=== PATIENT | male | born 1995 | race Caucasian/White ===

== ENCOUNTER 2019-05-22 13:00 | Inpatient (IN) | payer OTHER ==
[2019-05-22] MEDS ORDERED: PROPOFOL 0 MG/0 ML INFUS..BTL IV ONE (13:07)
[2019-05-22] MEDS ORDERED: LORAZEPAM INJ 2 MG/1 ML VIAL ONE (13:09)
[2019-05-22] MEDS ORDERED: MIDAZOLAM HCL 50 MG/100 ML RTUINJ ONE (13:14)
[2019-05-22] MEDS ORDERED: ETOMIDATE INJ/PF 20 MG/10 ML SDV IV ONE (13:18)
[2019-05-22] MEDS ORDERED: SUCCINYLCHOLINE CHLORIDE INJ 200 MG/10 ML VIAL IV ONE (13:18)
[2019-05-22] MEDS ORDERED: LORAZEPAM INJ 2 MG/1 ML VIAL IV ONE (13:18)
[2019-05-22] MEDS ORDERED: MIDAZOLAM HCL 50 MG/100 ML RTUINJ IV PRN (13:19)
[2019-05-22] MEDS ORDERED: VECURONIUM BROMIDE INJ 10 MG VIAL IV ONE (13:19)
[2019-05-22] MEDS ORDERED: NORMAL SALINE 1000 ML 1,000 ML IV ONE ×2 (13:20)
[2019-05-22] MEDS ORDERED: NORMAL SALINE 1000 ML 2,000 ML IV ONE (13:28)
[2019-05-22] MEDS ORDERED: NOREPINEPHRINE BITARTRATE INJ/PF 4 MG/4 ML SDV IV ONE (13:33)
--- NOTE | 2019-05-22 13:34 | ER Document Report ---
Entered by MARILU WISDOM SCRIBE 05/22/19 1394 Acting as scribe for:FORTUNATO NICHOLE IV, MD ED Resuscitation - General Chief Complaint: Unresponsive Stated Complaint: UNRESPONSIVE Mode of Arrival: Medic Information source: Law Enforcement, Emergency Med Personnel Cannot obtain history due to: Unstable vital signs, Altered mental status Notes: 23 year old male that presents to the emergency department today with complaints of being found unresponsive today in his [facility] cell. EMS and building guard deputy sheriff at bedside have suspicion that the patient "may have swallowed something". EMS states on arrival the patient had agonal respirations with a blood pressure of 48/20. Patient has known history of multi-substance drug abuse including heroin according to sheriff [place]. Patient was booked on 05/20/2019 (two days ago). Patient has a left tibial IO in place and fluids are running upon arrival here. GCS of 4. TRAVEL OUTSIDE OF THE [place] IN LAST 30 DAYS: No - Related Data Allergies/Adverse Reactions: No Known Allergies Allergy (Unverified 05/22/19 13:20) Past Medical History - General Cannot obtain history due to: Unstable vital signs, Altered mental status - Social History Smoking Status: Unknown if Ever Smoked Drug Abuse: Heroin, Prescription drugs Family History: Other Patient has suicidal ideation: No Patient has homicidal ideation: No Review of Systems - Review of Systems -: Yes ROS unobtainable due to patient's medical condition Physical Exam - Vital signs Vitals: Pulse Ox 96 05/22/19 13:00 - General General appearance: Unresponsive In distress: Severe - HEENT Head: Normocephalic, Atraumatic Eyes: Normal - Respiratory Respiratory status: Respiratory distress - being bagged, intubated for airway protection - Cardiovascular Rhythm: Regular Heart sounds: Normal auscultation Murmur: No - Abdominal Inspection: Normal Distension: No distension - Extremities General upper extremity: Other - tattoos General lower extremity: No: Other - tattoos. left tibial IO in place - Neurological Geismar Coma Scale Eye Opening: None Camille Coma Scale Verbal: Incomprehensible Camille Coma Scale Motor: None Geismar Coma Scale Total: 4 - Psychological Associated symptoms: Other - unresponsive, unable to assess. - Skin Skin Temperature: Warm Skin Moisture: Dry Skin Color: Normal Course - Vital Signs Vital signs: Temp Pulse Resp BP Pulse Ox 14 110/42 L 97 05/22/19 14:51 05/22/19 14:51 05/22/19 15:15 - Laboratory Result Diagrams: 05/22/19 13:00 05/22/19 13:00 Laboratory results interpreted by me: 05/22/19 05/22/19 05/22/19 13:00 13:00 13:00 WBC 26.7 H RDW 15.1 H Seg Neuts % (Manual) 81 H Lymphocytes % (Manual) 11 L Abs Neuts (Manual) 22.4 H PT 15.5 H VBG pH VBG HCO3 Sodium 131.5 L Potassium 5.9 H Carbon Dioxide 6 L* Anion Gap 28 H BUN 32 H Creatinine 3.51 H Est GFR ( Amer) 27 L Est GFR (MDRD) Non-Af 22 L Glucose 672 H* Calcium 10.8 H Direct Bilirubin 0.5 H Alkaline Phosphatase 182 H Urine Protein Urine Glucose (UA) Urine Ketones Urine Blood 05/22/19 05/22/19 13:00 14:24 WBC RDW Seg Neuts % (Manual) Lymphocytes % (Manual) Abs Neuts (Manual) PT VBG pH 6.79 L* VBG HCO3 6.6 L Sodium Potassium Carbon Dioxide Anion Gap BUN Creatinine Est GFR ( Amer) Est GFR (MDRD) Non-Af Glucose Calcium Direct Bilirubin Alkaline Phosphatase Urine Protein 100 H Urine Glucose (UA) >=500 H Urine Ketones 80 H Urine Blood MODERATE H - EKG Interpretation by Me Additional EKG results interpreted by me: 05/22/19 14:29 EKG performed at 1417 hrs. on 05/22/2019 was interpreted by this MD. Findings normal sinus rhythm, rate of 88, normal axis, P waves preceding QRS complex, QRS complex appears narrow, no ST segment elevation or depression is appreciated to suggest myocardial ischemia or infarction. Impression normal sinus rhythm with no acute findings. - Consults DR. CHAN Time consulted: 15:37 Reason for consultation: 05/22/19 15:38 GCS 4, INTUBATED, DKA Consulted provider: will come to ER Critical Care Note - Critical Care Note Total time excluding time spent on procedures (mins): 60 Discharge - Discharge Clinical Impression: DKA (diabetic ketoacidosis) Condition: Critical Disposition: ADMITTED INPATIENT Admitting Provider: DR. CHAN Unit Admitted: ICU I personally performed the services described in the documentation, reviewed and edited the documentation which was dictated to the scribe in my presence, and it accurately records my words and actions.
[2019-05-22] MEDS ORDERED: DEXTROSE 5%-WATER 250 ML with NOREPINEPHRINE BITARTRATE 4 MG IV PRN ×4 (13:36→18:33)
[2019-05-22] MEDS ORDERED: PANTOPRAZOLE SODIUM 40 MG VIAL IV ONE (13:39)
[2019-05-22] MEDS ORDERED: PANTOPRAZOLE SODIUM 40 MG VIAL IV PRN (13:40)
--- NOTE | 2019-05-22 13:41 | RADIOLOGY REPORT (SQ) ---
EXAM DESCRIPTION: CHEST SINGLE VIEW COMPLETED DATE/TIME: 05/22/2019 1:32 pm REASON FOR STUDY: ETT COMPARISON: None. EXAM PARAMETERS: NUMBER OF VIEWS: One view. TECHNIQUE: Single frontal radiographic view of the chest acquired. RADIATION DOSE: NA LIMITATIONS: None. FINDINGS: LUNGS AND PLEURA: The patchy airspace disease is present in the left mid lung and at both lung bases left greater than right. No pleural effusions. No gross pneumothorax. MEDIASTINUM AND HILAR STRUCTURES: No masses. Contour normal. HEART AND VASCULAR STRUCTURES: Heart normal in size. Normal vasculature. BONES: No acute findings. HARDWARE: Endotracheal tube tip 3 cm above the janet. OTHER: No other significant finding. IMPRESSION: Endotracheal tube tip in good positioning. Bibasilar airspace disease left greater than right, abnormal but nonspecific. Aspiration pneumonia s hould be considered. TECHNICAL DOCUMENTATION: JOB ID: [id number] [employer]- All Rights Reserved Reading location - IP/workstation name: [email or web address]
[2019-05-22 14:30] LABS: VENOUS BLOOD BASE EXCESS -28.6 mmol/L; VENOUS BLOOD HCO3 6.6 mmol/L (20-32); VENOUS BLOOD PCO2 44.4 mmHg (35-63)
[2019-05-22 14:32] LABS: INTERNATIONAL RATION (INR) 1.22; PARTIAL THROMBOPLASTIN TIME 29.2 SEC (23.5-35.8); PROTHROMBIN TIME 15.5 SEC (11.4-15.4); VENOUS BLOOD PH 6.79 (7.30-7.42)
[2019-05-22] MEDS ORDERED: SODIUM BICARBONATE 8.4% INJ 50 MEQ/50 ML DISP.SYRIN IV ONE ×2 (14:40→16:26)
[2019-05-22 14:42] LABS: ALBUMIN 4.1 g/dL (3.5-5.0); ALKALINE PHOSPHATASE 182 U/L (38-126); ASPARTATE AMINO TRANSFERASE 36 U/L (17-59); BILIRUBIN,DIRECT 0.5 mg/dL (0.0-0.4); BLOOD UREA NITROGEN 32 mg/dL (7-20); CALCIUM 10.8 mg/dL (8.4-10.2); POTASSIUM 5.9 mmol/L (3.6-5.0); TOTAL PROTEIN 6.7 g/dL (6.3-8.2)
[2019-05-22 14:48] LABS: HEMATOCRIT 47.1 % (37.9-51.0); HEMOGLOBIN 15.1 g/dL (13.5-17.0); MEAN CORPUSCULAR HEMOGLOBIN 28.4 pg (27.0-33.4); MEAN CORPUSCULAR HGB CONC 32.1 g/dL (32.0-36.0); MEAN CORPUSCULAR VOLUME 88 fl (80-97); PLATELET COUNT 347 10^3/uL (150-450); RED BLOOD COUNT 5.34 10^6/uL (4.35-5.55); RED CELL DISTRIBUTION WIDTH 15.1 % (11.5-14.0); WHITE BLOOD COUNT 26.7 10^3/uL (4.0-10.5)
[2019-05-22 15:02] LABS: CHLORIDE 98 mmol/L (98-107)
[2019-05-22 15:05] LABS: APPEARANCE,URINE CLOUDY; BILIRUBIN,URINE NEGATIVE (NEGATIVE); COLOR,URINE YELLOW; GLUCOSE, URINE >=500 mg/dL (NEGATIVE); KETONES,URINE 80 mg/dL (NEGATIVE); LEUKOCYTE ESTERASE,URINE NEGATIVE (NEGATIVE); NITRITE,URINE NEGATIVE (NEGATIVE); PROTEIN,URINE 100 mg/dL (NEGATIVE); URINE SPECIFIC GRAVITY 1.021; UROBILINOGEN,URINE NEGATIVE mg/dL (<2.0)
[2019-05-22 15:06] LABS: CARBON DIOXIDE 6 mmol/L (22-30); GLUCOSE 672 mg/dL (75-110)
[2019-05-22 15:09] LABS: ANION GAP 28 (5-19)
[2019-05-22] MEDS ORDERED: GLUCAGON,HUMAN RECOMB 1 MG INJ IM PRN ×2 (15:11→15:51)
[2019-05-22] MEDS ORDERED: DEXTROSE 40% GEL 15 GM TUBE PO PRN ×6 (15:11→16:03)
[2019-05-22] MEDS ORDERED: NORMAL SALINE 100 ML with INSULIN REGULAR, HUMAN 100 UNIT IV PRN ×2 (15:11)
[2019-05-22] MEDS ORDERED: DEXTROSE 50%-WATER 25 GM/50 ML DISP.SYRIN IV PRN ×5 (15:11→16:03)
[2019-05-22] MEDS ORDERED: INSULIN REG, HUMAN 100 UNIT/ML 3 ML VIAL (PYX) IV ONE (15:12)
[2019-05-22 15:16] LABS: URINE AMPHETAMINES SCREEN NEGATIVE; URINE BARBITURATES SCREEN NEGATIVE; URINE COCAINE SCREEN NEGATIVE; URINE MARIJUANA (THC) SCREEN NEGATIVE; URINE METHADONE SCREEN NEGATIVE; URINE PHENCYCLIDINE SCREEN NEGATIVE
[2019-05-22 15:17] LABS: ABSOLUTE LYMPHOCYTES# (MANUAL) 2.9 10^3/uL (0.5-4.7); ABSOLUTE MONOCYTES # (MANUAL) 1.3 10^3/uL (0.1-1.4); ANISOCYTOSIS SLIGHT; BAND NEUTROPHILS % (MANUAL) 3 % (3-5); BASOPHILS % (MANUAL) 0 % (0-2); EOSINOPHILS % (MANUAL) 0 % (0-6); LYMPHOCYTES % (MANUAL) 11 % (13-45); MONOCYTES % (MANUAL) 5 % (3-13); PLATELET COMMENT ADEQUATE; SEGMENTED NEUTROPHILS % (MAN) 81 % (42-78); TOTAL CELLS COUNTED 100
[2019-05-22] MEDS ORDERED: INSULIN REG, HUMAN 100 UNIT/ML 3 ML VIAL (PYX) ONE (15:28)
[2019-05-22 15:30] LABS: URINE BENZODIAZEPINES SCREEN UNCONFIRMED POSITIVE
[2019-05-22] MEDS ORDERED: PROPOFOL 1,000 MG/100 ML INFUS..BTL IV PRN ×2 (15:43→18:33)
[2019-05-22] MEDS ORDERED: NALOXONE HCL INJ/PF 0.4 MG/1 ML SDV IV ONE (15:46)
[2019-05-22] MEDS ORDERED: NALOXONE HCL INJ/PF 0.4 MG/1 ML SDV ONE (15:47)
[2019-05-22] MEDS: RINGERS SOLUTION,LACTATED 1,000 ML IV PRN ×2 (16:03→18:54)
[2019-05-22] MEDS: NORMAL SALINE 100 ML with INSULIN REGULAR, HUMAN 100 UNIT IV PRN ×6 (16:16→23:25)
[2019-05-22 16:18] LABS: ARTERIAL BLOOD BASE EXCESS -27.6 mmol/L; ARTERIAL BLOOD H2CO3 1.43 mmol/L (1.05-1.35); ARTERIAL BLOOD HCO3 7.2 mmol/L (20-24); ARTERIAL BLOOD O2 SATURATION 86.5 % (94-98); ARTERIAL BLOOD PCO2 47.6 mmHg (35-45); ARTERIAL BLOOD PO2 92.1 mmHg (80-100); ARTERIAL BLOOD TOTAL CO2 8.7 mmol/L (23-27)
[2019-05-22 16:21] LABS: ARTERIAL BLOOD FIO2 40%
--- NOTE | 2019-05-22 16:30 | CRITICAL CARE ADMISSION REPORT ---
HPI Date:: 05/22/19 Time:: 16:08 Reason for ICU Reason:: Inubated, coma wit DKA. HPI: 23-year-old male incarcerated recently in the local correction. Brought to the emergency room today because of unresponsiveness after he slumped over while sitting on the toilet. In discussion with the [facility]'s deputy, patient had been placed in the half-way approximately 2 to 3 days ago. The assumption is for heroin related activities. There is no history of diabetes or any past medical history that could be obtained. On his intake sheet the patient stated that he takes no medication and has no history of diabetes. He was brought to the emergency room where his status declined to the point that he required intubation with a Camille Coma Scale of 4. We were called to evaluate the patient for admission to the ICU because of anion gap acidosis, hyperglycemia all suggestive of DKA. Patient is intubated so no history could be obtained. He was started on insulin given IV fluid resuscitation. He is hypotensive and now on Levophed. History obtained from:: ED staff, deputy - Diagnosis/Plan (1) Coma Qualifiers: Coma depth: Erie coma 3-8 Coma timing: at arrival to emergency department Qualified Code(s): R40.2432 - Erie coma scale score 3-8, at arrival to emergency department Is this a current diagnosis for this admission?: Yes (2) Acute renal failure (ARF) Qualifiers: Acute renal failure type: with other specified pathological lesion Qualifie d Code(s): N17.8 - Other acute kidney failure Is this a current diagnosis for this admission?: Yes (3) Heroin abuse Is this a current diagnosis for this admission?: Yes (4) Dehydration Is this a current diagnosis for this admission?: Yes (5) Hypothermia Qualifiers: Encounter type: initial encounter Qualified Code(s): T68.XXXA - Hypothermia, initial encounter Is this a current diagnosis for this admission?: Yes (6) Bathroom in correction as the place of occurrence of the external cause Is this a current diagnosis for this admission?: Yes - . Plan Summary: Patient to be admitted to ICU. He is extremely critical and has a poor prognosis given his admitting circumstances. From a respiratory standpoint we need to maintain a high minute ventilation to match the metabolic process that he presented with. He has significant acidosis and I am in agreement with the bicarbonate given his hypotension. Hopefully with the infusion of insulin and his elevated glucose this will improve his ov erall status. Initially was started on Protonix because it was assumed giving the dark ground material of his vomitus that he had a GI bleed. His hemoglobin and hematocrit are stable and this is a common occurrence with DKA. I discontinued the Protonix. For his diabetes this appears to be an undiagnosed type I DKA in a patient previously not known to have diabetes. We will send a hemoglobin A1c check TSH. He does not appear to have an infection at this time. But we will screen for this. Patient is comatose and have ordered a CT Given his comatose status he was given Narcan without any change in status. I have ordered a CT of his abdomen and pelvis to rule out malfeasant placement of recreational drugs. Past Medical History Medical History: None Cardiac Medical History: Reports: None Pulmonary Medical History: Reports: None EENT Medical History: Reports: None Neurological Medical History: Reports: None Endocrine Medical History: Reports: None Denies: Diabetes Mellitus Type 1, Diabetes Mellitus Type 2 Renal/ Medical History: Reports: None Malignancy Medical History: Reports: None GI Medical History: Reports: None Musculoskeltal Medical History: Reports: None Skin Medical History: Reports: None Psychiatric Medical History: Reports: Substance Abuse Traumatic Medical History: Denies: None Hematology: Reports: None Infectious Medical History: Reports: None Past Surgical History Past Surgical History: Reports: None Social/Family History - Social History Lives with: Other - Prisoner Smoking Status: Unknown if Ever Smoked Hx Recreational Drug Use: Yes Drugs: Heroin - Family History Family History: Other - Unknown - Medication/Allergies Allergies/Adverse Reactions: No Known Allergies Allergy (Unverified 05/22/19 13:20) Review of Systems ROS unobtainable: Due to endotracheal tube, Due to mental status Review of Systems: Thelma reports that the prisoners were on lockdown yesterday. They do not know if he was ill yesterday. He was not well today and was found slumped while on a toilet after lunch. Physical Exam Vital Signs: Temp Pulse Resp BP Pulse Ox 95 F L 14 110/42 L 96 05/22/19 16:05 05/22/19 14:51 05/22/19 14:51 05/22/19 15:56 Intake & Output 05/21/19 05/22/19 05/23/19 06:59 06:59 06:59 Intake Total 4063 Balance 4063 Weight 94.9 kg Weight/Height Weight 94.9 kg General appearance: PRESENT: disheveled, thin Exam: Intubated disheveled ill-appearing unresponsive 23-year-old male Head exam: PRESENT: atraumatic, normocephalic Eye exam: PRESENT: conjunctival injection, PERRLA. ABSENT: nystagmus, scleral icterus Mouth exam: PRESENT: dry mucosa Teeth exam: PRESENT: poor dentation Neck exam: ABSENT: carotid bruit, JVD, lymphadenopathy, thyromegaly, tracheal deviation Respiratory exam: PRESENT: clear to auscultation amy Cardiovascular exam: PRESENT: RRR, +S1, +S2. ABSENT: systolic murmur Pulses: PRESENT: +1 pedal pulses bilateral GI/Abdominal exam: PRESENT: soft. ABSENT: ascites, diminished bowel sounds, distended, firm, guarding, hypoactive bowel sounds, mass, organolmegaly, rebound, rigid, tenderness Rectal exam: PRESENT: fecal impaction, heme (-) stool, normal inspection, normal rectal tone, other - no abscess Gentrourinary exam: PRESENT: urethral discharge, indwelling catheter. ABSENT: ecchymosis, erythema, lacerations, scrotal swelling Extremities exam: ABSENT: clubbing, pedal edema, tenderness Musculoskeletal exam: PRESENT: normal inspection. ABSENT: deformity, dislocation Neurological exam: PRESENT: altered, other - Comatose. GCS 3 on 2 mg versed Skin exam: PRESENT: mottled, pallor, rash - slight red papules bilateral lower extremities, other - cool. ABSENT: abrasion, cyanosis, petechiae, urticaria, vesicles Laboratory/Radiographs Laboratory Results: 05/22/19 13:00 05/22/19 05/22/19 05/22/19 13:00 13:00 13:00 WBC 26.7 H RBC 5.34 Hgb 15.1 Hct 47.1 MCV 88 MCH 28.4 MCHC 32.1 RDW 15.1 H Plt Count 347 Seg Neutrophils % Not Reportable VBG pH VBG pCO2 VBG HCO3 VBG Base Excess Sodium 131.5 L Potassium 5.9 H Chloride 98 Carbon Dioxide 6 L* Anion Gap 28 H BUN 32 H Creatinine 3.51 H Est GFR ( Amer) 27 L Glucose 672 H* Lactic Acid 2.0 Calcium 10.8 H Total Bilirubin 1.0 AST 36 Alkaline Phosphatase 182 H Total Protein 6.7 Albumin 4.1 Urine Color Urine Appearance Urine pH Ur Specific [place] Urine Protein Urine Glucose (UA) Urine Ketones Urine Blood Urine Nitrite Ur Leukocyte Esterase Urine WBC (Auto) Urine RBC (Auto) Blood Type Antibody Screen 05/22/19 05/22/19 05/22/19 13:00 13:58 14:24 WBC RBC Hgb Hct MCV MCH MCHC RDW Plt Count Seg Neutrophils % VBG pH 6.79 L* VBG pCO2 44.4 VBG HCO3 6.6 L VBG Base Excess -28.6 Sodium Potassium Chloride Carbon Dioxide Anion Gap BUN Creatinine Est GFR ( Amer) Glucose Lactic Acid Calcium Total Bilirubin AST Alkaline Phosphatase Total Protein Albumin Urine Color YELLOW Urine Appearance CLOUDY Urine pH 6.0 Ur Specific [place] 1.021 Urine Protein 100 H Urine Glucose (UA) >=500 H Urine Ketones 80 H Urine Blood MODERATE H Urine Nitrite NEGATIVE Ur Leukocyte Esterase NEGATIVE Urine WBC (Auto) 18 Urine RBC (Auto) 43 Blood Type O POSITIVE Antibody Screen NEGATIVE Impressions: Chest X-Ray 05/22/19 13:15 IMPRESSION: Endotracheal tube tip in good positioning. Bibasilar airspace disease left greater than right, abnormal but nonspecific. Aspiration pneumonia should be considered. All labs, radiographs, diagnostic studies and EKGs were personally reviewed: Yes In addition, reports of radiographic and diagnostic studies were read: Yes Critical Time Critical Time (minutes): 120 -: The care of a critically ill patient is dynamic. This note represents a static moment in the admission process. orders and treatments may be given simulataneously and urgentl, and time is not benefits representative of the treatment process. This patient requires Critical Care secondary to life threating organ or limb dysfunction. Without the need for Critical Care services, the patient is at risk for increasid mortality and morbidity.
[2019-05-22 16:39] LABS: AMYLASE 884 U/L (30-110); BLOOD UREA NITROGEN 33 mg/dL (7-20); CHLORIDE 105 mmol/L (98-107); CREATINE KINASE 816 U/L (55-170); PHOSPHORUS 6.6 mg/dL (2.5-4.5); POTASSIUM 5.3 mmol/L (3.6-5.0)
[2019-05-22 16:52] LABS: CARBON DIOXIDE 7 mmol/L (22-30); GLUCOSE 604 mg/dL (75-110)
[2019-05-22 16:53] LABS: ANION GAP 22 (5-19)
[2019-05-22 16:54] LABS: FREE T3 1.64 pg/mL (2.77-5.27); FREE T4 (FREE THYROXINE) 0.83 ng/dL (0.78-2.19)
[2019-05-22 17:08] LABS: THYROID STIMULATING HORMONE 1.45 uIU/mL (0.47-4.68)
[2019-05-22 17:49] LABS: INTERNATIONAL RATION (INR) 1.15; PARTIAL THROMBOPLASTIN TIME 27.7 SEC (23.5-35.8); PROTHROMBIN TIME 14.8 SEC (11.4-15.4)
--- NOTE | 2019-05-22 18:01 | RADIOLOGY REPORT (SQ) ---
EXAM DESCRIPTION: CT HEAD WITHOUT COMPLETED DATE/TIME: 05/22/2019 5:50 pm REASON FOR STUDY: coma COMPARISON: None. TECHNIQUE: Axial images acquired through the brain without intravenous contrast. Images reviewed wi th bone, brain and subdural windows. Additional sagittal and coronal reconstructions were generated. Images stored on PACS. All CT scanners at this facility use dose modulation, iterative reconstruction, and/or weight based d osing when appropriate to reduce radiation dose to as low as reasonably achievable (ALARA). [facility]: Dose Right [facility]: CareDose [facility]: Dose Right [facility]: Teradose 4D [facility]: Genprex RADIATION DOSE: CT Rad equipment meets quality standard of care and radiation dose reduction techniq ues were employed. CTDIvol: 53.2 mGy. DLP: 1017 mGy-cm. mGy. LIMITATIONS: None. FINDINGS: VENTRICLES: Normal size and contour. CEREBRUM: No masses. No hemorrhage. No midline shift. No evidence for acute infarction. Normal gra y/white matter differentiation. No areas of low density in the white matter. CEREBELLUM: No masses. No hemorrhage. No alteration of density. No evidence for acute infarction. EXTRAAXIAL SPACES: No fluid collections. No masses. ORBITS AND GLOBE: No intra- or extraconal masses. Normal contour of globe without masses. CALVARIUM: No fracture. PARANASAL SINUSES: No fluid or mucosal thickening. SOFT TISSUES: No mass or hematoma. OTHER: No other significant finding. IMPRESSION: NORMAL BRAIN CT WITHOUT CONTRAST. EVIDENCE OF ACUTE STROKE: NO. COMMENT: Quality ID # 436: Final reports with documentation of one or more dose reduction techniques (e.g., Automated exposure control, adjustment of the mA and/or kV according to patient size, use of iterative reconstruction technique) TECHNICAL DOCUMENTATION: JOB ID: [id number] [employer]- All Rights Reserved Reading location - IP/workstation name: [email or web address]
[2019-05-22] MEDS ORDERED: INFLUENZA QUAD (6MOS+) 2019-20 VAC 0.5 ML SYR IM ONE (18:16)
--- NOTE | 2019-05-22 18:19 | RADIOLOGY REPORT (SQ) ---
EXAM DESCRIPTION: CT ABD/PELVIS NO ORAL OR IV COMPLETED DATE/TIME: 05/22/2019 5:50 pm REASON FOR STUDY: coma COMPARISON: None. TECHNIQUE: CT scan of the abdomen and pelvis performed without intravenous or oral contrast. Images reviewed with lung, soft tissue, and bone windows. Reconstructed coronal and sagittal MPR images revi ewed. All images stored on PACS. All CT scanners at this facility use dose modulation, iterative reconstruction, and/or weight based d osing when appropriate to reduce radiation dose to as low as reasonably achievable (ALARA). [facility]: Dose Right [facility]: CareDose [facility]: Dose Right [facility]: Teradose 4D [facility]: Smart [employer] RADIATION DOSE: CT Rad equipment meets quality standard of care and radiation dose reduction techniq ues were employed. CTDIvol: 14.4 mGy. DLP: 893 mGy-cm.mGy. LIMITATIONS: None. FINDINGS: LOWER CHEST: Dense consolidation is present throughout the left lower lobe lingula and rig ht posterior lung base worrisome for aspiration pneumonia. Report discussed with Dr. Acosta NON-CONTRASTED LIVER, SPLEEN, ADRENALS: Evaluation limited by lack of IV contrast. No identified sign ificant masses. PANCREAS: There is inflammation surrounding the pancreatic body and tail worrisome for acute pancreat itis. Inflammation extends into the anterior left pararenal space, seen on axial images 34-40 and sa gittal images 60-78. GALLBLADDER: No identified stones by CT criteria. No inflammatory changes to suggest cholecystitis. RIGHT KIDNEY AND URETER: No suspicious masses. Assessment limited by lack of IV contrast. No signif icant calcifications. No hydronephrosis or hydroureter. LEFT KIDNEY AND URETER: No suspicious masses. Assessment limited by lack of IV contrast. No signifi cant calcifications. No hydronephrosis or hydroureter. AORTA AND RETROPERITONEUM: No aneurysm. No retroperitoneal masses or adenopathy. BOWEL AND PERITONEAL CAVITY: No obvious masses or inflammatory changes. No free fluid. No foreign paul dies in the stomach or small bowel. APPENDIX: Normal. PELVIS, BLADDER, AND ABDOMINAL WALL:No abnormal masses. No free fluid. Bladder normal. Harris cathete r decompresses the bladder. BONES: No significant findings. OTHER: No other significant finding. IMPRESSION: Dense consolidation worrisome for aspiration pneumonia at the lung bases. Retroperitoneal inflammation along the pancreatic body and tail worrisome for acute pancreatitis. No pseudocyst is identified. No pancreatic duct or parenchyma calcifications. COMMENT: Quality ID # [id number]: Final reports with documentation of one or more dose reduction techniques (e.g., Automated exposure control, adjustment of the mA and/or kV according to patient size, use of iterative reconstruction technique) TECHNICAL DOCUMENTATION: JOB ID: [id number] [employer]- All Rights Reserved Reading location - IP/workstation name: [email or web address]
[2019-05-22] MEDS ORDERED: VANCOMYCIN HCL 0 MG in DEXTROSE 5%-WATER 250 ML IV NR (18:45)
[2019-05-22] MEDS: HEPARIN SOD (PORCINE) 5,000 UNIT/ML 1 ML VIAL SUBCUT SCH (18:52)
--- NOTE | 2019-05-22 19:04 | RADIOLOGY REPORT (SQ) ---
EXAM DESCRIPTION: CHEST SINGLE VIEW COMPLETED DATE/TIME: 05/22/2019 6:50 pm REASON FOR STUDY: line and tube placement COMPARISON: AP chest 05/22/2019, 1323 hours EXAM PARAMETERS: NUMBER OF VIEWS: One view. TECHNIQUE: Single frontal radiographic view of the chest acquired. RADIATION DOSE: NA LIMITATIONS: None. FINDINGS: LUNGS AND PLEURA: Airspace disease is present left greater than right at both lung bases w orrisome for aspiration pneumonia. This similar to 1323 hours. No pneumothorax. No gross pleural effusions. MEDIASTINUM AND HILAR STRUCTURES: No masses. Contour normal. HEART AND VASCULAR STRUCTURES: Heart normal in size. Normal vasculature. BONES: No acute findings. HARDWARE: Endotracheal tube tip 3 cm above the janet. Nasogastric tube tip and side port in the sto mach OTHER: No other significant finding. IMPRESSION: Bilateral airspace disease worrisome for multifocal pneumonia. Aspiration should be con sidered. Endotracheal tube, nasogastric tube in good positioning. TECHNICAL DOCUMENTATION: JOB ID: [id number] [employer]- All Rights Reserved Reading location - IP/workstation name: [email or web address]
[2019-05-22] MEDS ORDERED: SUCCINYLCHOLINE CHLORIDE INJ 200 MG/10 ML VIAL ONE (20:00)
[2019-05-22] MEDS ORDERED: FENTANYL CITRATE INJ/PF 100 MCG/2 ML AMPUL ONE (20:03)
[2019-05-22] MEDS ORDERED: MIDAZOLAM 2 MG/2 ML INJ ONE ×3 (20:06→20:53)
[2019-05-22] MEDS ORDERED: FOLIC ACID INJ 5 MG/1 ML 10 ML VIAL IV SCH (22:00)
[2019-05-22] MEDS: PIPERACILLIN SODIUM/TAZOBACTAM 2.25 GM in NORMAL SALINE 50 ML IV SCH (22:26)
[2019-05-22] MEDS ORDERED: FENTANYL CITRATE IV PRN ×2 (23:26)
[2019-05-22] MEDS ORDERED: NORMAL SALINE IV PRN ×2 (23:26)
[2019-05-22 23:36] LABS: BLOOD UREA NITROGEN 41 mg/dL (7-20); CHLORIDE 109 mmol/L (98-107); GLUCOSE 380 mg/dL (75-110)
[2019-05-22 23:45] LABS: PHOSPHORUS 1.6 mg/dL (2.5-4.5); POTASSIUM 3.5 mmol/L (3.6-5.0)
[2019-05-22 23:53] LABS: ANION GAP 22 (5-19); CARBON DIOXIDE 6 mmol/L (22-30)
--- NOTE | 2019-05-23 | RADIOLOGY REPORT (SQ) ---
EXAM DESCRIPTION: XR CHEST 1 VIEW COMPLETED DATE/TME: 05/22/2019 00:00 CLINICAL HISTORY: 23 years, Male, Central line Placement COMPARISON: 05/22/2019 chest x-ray at 6:42 PM NUMBER OF VIEWS: 1 TECHNIQUE: Upright chest LIMITATIONS: None. FINDINGS: The heart size is normal. Central venous catheter with the tip in the SVC. No pneumothorax. Enteric and endotracheal tubes are in place. Airspace opacities of the left lung base likely reflect pneumonia. No pneumothorax IMPRESSION: Placement of a central venous catheter as above. Other findings are stable copyright 2010 [employer]- All Rights Reserved
[2019-05-23] MEDS: NORMAL SALINE 100 ML with INSULIN REGULAR, HUMAN 100 UNIT IV PRN ×14 (00:31→12:00)
[2019-05-23 00:34] LABS: ARTERIAL BLOOD BASE EXCESS -16.5 mmol/L; ARTERIAL BLOOD HCO3 7.7 mmol/L (20-24); ARTERIAL BLOOD O2 SATURATION 97.8 % (94-98); ARTERIAL BLOOD PH 7.28 (7.35-7.45); ARTERIAL BLOOD PO2 112.7 mmHg (80-100); ARTERIAL BLOOD TOTAL CO2 8.2 mmol/L (23-27)
[2019-05-23 00:35] LABS: ARTERIAL BLOOD FIO2 40%
[2019-05-23 00:37] LABS: ARTERIAL BLOOD PCO2 16.6 mmHg (35-45)
[2019-05-23] MEDS: FENTANYL CITRATE/PF 600 MCG/60 ML BAG IV PRN ×3 (00:54→22:30)
[2019-05-23] MEDS: VANCOMYCIN HCL 750 MG in DEXTROSE 5%-WATER 250 ML IV SCH ×3 (01:11→21:38)
[2019-05-23] MEDS ORDERED: DEXTROSE 5%-WATER 1000 ML 1,000 ML with SODIUM BICARBONATE 150 MEQ IV PRN ×2 (01:22)
[2019-05-23] MEDS ORDERED: DEXTROSE 5%-WATER 1000 ML 1,000 ML with SODIUM BICARBONATE 50 MEQ IV ONE ×2 (01:30)
[2019-05-23] MEDS ORDERED: SODIUM BICARBONATE 8.4% INJ 50 MEQ/50 ML DISP.SYRIN ONE ×2 (01:31→01:41)
[2019-05-23] MEDS: FOLIC ACID 1 MG in NORMAL SALINE 50 ML IV SCH ×3 (02:01→21:38)
--- NOTE | 2019-05-23 03:12 | Progress Note ---
Provider Note Provider Note: Arterial line placement note: Consent obtained through Mr. Cole Hodges who is the [facility] supervisor sanding Indication: Hemodynamic instability Patient was placed in supine position with his right arm extended. Emre test confirmed adequate collateral blood flow. Strong pulse palpated in the right radial artery. Right arm and hand prepped in sterile fashion. Arterial line placed in right radial artery using Seldinger technique. Sterile dressing applied. Placement of arterial line confirmed with good waveform on transducer. No complications with procedure. Attending physician was present throughout entire procedure.
[2019-05-23] MEDS: PIPERACILLIN SODIUM/TAZOBACTAM 2.25 GM in NORMAL SALINE 50 ML IV SCH ×4 (03:35→21:38)
[2019-05-23 04:01] LABS: ANION GAP 14 (5-19); BLOOD UREA NITROGEN 46 mg/dL (7-20); CALCIUM 9.7 mg/dL (8.4-10.2); CARBON DIOXIDE 13 mmol/L (22-30); CHLORIDE 110 mmol/L (98-107); GLUCOSE 221 mg/dL (75-110); PHOSPHORUS 0.7 mg/dL (2.5-4.5)
[2019-05-23 04:14] LABS: POTASSIUM 2.9 mmol/L (3.6-5.0)
[2019-05-23] MEDS: HEPARIN SOD (PORCINE) 5,000 UNIT/ML 1 ML VIAL SUBCUT SCH ×3 (06:08→17:02)
[2019-05-23] MEDS: POTASSIUM CHLORIDE 20 MEQ/50 ML RTU IV SCH ×5 (06:09→21:37)
[2019-05-23] MEDS: RINGERS SOLUTION,LACTATED 1,000 ML IV PRN (06:30)
[2019-05-23 07:21] LABS: ARTERIAL BLOOD BASE EXCESS -10.9 mmol/L; ARTERIAL BLOOD H2CO3 0.61 mmol/L (1.05-1.35); ARTERIAL BLOOD HCO3 12.1 mmol/L (20-24); ARTERIAL BLOOD O2 SATURATION 97.1 % (94-98); ARTERIAL BLOOD PH 7.39 (7.35-7.45); ARTERIAL BLOOD PO2 90.9 mmHg (80-100); ARTERIAL BLOOD TOTAL CO2 12.7 mmol/L (23-27)
[2019-05-23 07:22] LABS: ARTERIAL BLOOD FIO2 40%
[2019-05-23 07:24] LABS: ARTERIAL BLOOD PCO2 20.3 mmHg (35-45)
[2019-05-23 07:27] LABS: ANION GAP 13 (5-19); BLOOD UREA NITROGEN 50 mg/dL (7-20); CALCIUM 9.7 mg/dL (8.4-10.2); CARBON DIOXIDE 12 mmol/L (22-30); CHLORIDE 112 mmol/L (98-107); GLUCOSE 120 mg/dL (75-110)
[2019-05-23 07:33] LABS: PHOSPHORUS < 0.5 mg/dL (2.5-4.5)
[2019-05-23 07:36] LABS: POTASSIUM 2.7 mmol/L (3.6-5.0)
[2019-05-23] MEDS: DEXMEDETOMIDINE IN 0.9 % NACL 400 MCG/100 ML RTUPB IV PRN ×2 (07:42→10:39)
[2019-05-23] MEDS ORDERED: POTASSIUM PHOS,M-BASIC-D-BASIC 60 MMOL in NORMAL SALINE 1000 ML 1,000 ML IV PRN (08:00)
[2019-05-23] MEDS ORDERED: INSULIN GLARGINE,HUM.REC.ANLOG 1,000 UNIT/10 ML VIAL (PYX) SUBCUT ONE (08:20)
--- NOTE | 2019-05-23 08:27 | RADIOLOGY REPORT (SQ) ---
EXAM DESCRIPTION: CHEST SINGLE VIEW COMPLETED DATE/TIME: 05/23/2019 6:02 am REASON FOR STUDY: aspiration with respiratory failure COMPARISON: Chest films 05/22/2019, multiple EXAM PARAMETERS: NUMBER OF VIEWS: One view. TECHNIQUE: Single frontal radiographic view of the chest acquired. RADIATION DOSE: NA LIMITATIONS: None. FINDINGS: LUNGS AND PLEURA: Minimal right basilar atelectasis or pneumonia. Progressive left retrocardiac infiltrate worrisome for worsening pneumonia. No gross pleural effusions. No pneumothorax. MEDIASTINUM AND HILAR STRUCTURES: No masses. Contour normal. HEART AND VASCULAR STRUCTURES: Heart normal in size. Normal vasculature. BONES: No acute findings. HARDWARE: Endotracheal tube tip 5 cm above the janet. Nasogastric tube tip and side port in the sto mach. Right jugular central line tip superior vena cava OTHER: No other significant finding. IMPRESSION: Tubes and lines in good positioning. Stable right basilar atelectasis versus pneumonia. Progressive left basilar consolidation TECHNICAL DOCUMENTATION: JOB ID: [id number] [employer]- All Rights Reserved Reading location - IP/workstation name: [email or web address]
[2019-05-23] MEDS: INSULIN GLARGINE,HUM.REC.ANLOG 1,000 UNIT/10 ML VIAL SUBCUT SCH ×2 (09:05→21:41)
[2019-05-23] MEDS ORDERED: POTASSI CL 20 MEQ/D5-1/2NS 1L 1000 ML IV PRN (09:30)
[2019-05-23] MEDS ORDERED: THIAMINE HCL 500 MG in NORMAL SALINE 250 ML IV SCH (10:00)
--- NOTE | 2019-05-23 10:20 | [facility] CRITICAL CARE PROG REPORT ---
General Date:: 05/23/19 ICU Day:: 2 Ventilator Day:: 2 Hospital Day:: 2 Events in the past 12 to 24 Hours:: Placed on ventilator, pressors, antibiotics, sedation Review of systems relevant to events:: Sedated but seems to be in some abd pain. All other systems not possible to review due to sedation. Reason for ICU Addmission:: Inubated, coma wit DKA. - Medications: Medications reviewed and adjusted accordingly: Yes Vasopressors:: levoped, vasopressin Sedation:: Precidex. Physical Exam Vital Signs: Temp Pulse Resp BP Pulse Ox 101.5 F H 79 39 H 94/52 L 100 05/23/19 08:00 05/23/19 08:00 05/23/19 08:00 05/23/19 08:00 05/23/19 08:00 Intake & Output 05/22/19 05/23/19 05/24/19 06:59 06:59 06:59 Intake Total 6034.2 143 Output Total 190 0 Balance 5844.2 143 Weight 95.7 kg Weight/Height Weight 95.7 kg Height 5 ft 10 in General appearance: PRESENT: well-developed, well-nourished Exam: Sedated. Head exam: PRESENT: atraumatic, normocephalic Eye exam: PRESENT: conjunctiva pink, EOMI, PERRLA. ABSENT: scleral icterus Ear exam: PRESENT: normal external ear exam Mouth exam: PRESENT: moist, tongue midline Cardiovascular exam: PRESENT: RRR, tachycardia. ABSENT: diastolic murmur, rubs, systolic murmur Vascular exam: PRESENT: normal capillary refill GI/Abdominal exam: PRESENT: diminished bowel sounds, hypoactive bowel sounds, tenderness Rectal exam: PRESENT: deferred Gentrourinary exam: PRESENT: indwelling catheter Extremities exam: PRESENT: full ROM. ABSENT: calf tenderness, clubbing, pedal edema Musculoskeletal exam: PRESENT: normal inspection Neurological exam: PRESENT: other - Sedated. Skin exam: PRESENT: dry, intact, warm. ABSENT: cyanosis, rash Tubes/Lines: PRESENT: Endotracheal Tube, Central Line, Arterial Catheter Laboratory/Radiographs Laboratory Results: 05/23/19 06:45 05/23/19 06:45 05/22/19 05/22/19 05/22/19 13:00 13:00 13:00 WBC 26.7 H RBC 5.34 Hgb 15.1 Hct 47.1 MCV 88 MCH 28.4 MCHC 32.1 RDW 15.1 H Plt Count 347 Seg Neutrophils % Not Reportable Carbonic Acid HCO3/H2CO3 Ratio ABG pH ABG pCO2 ABG pO2 ABG HCO3 ABG O2 Saturation ABG Base Excess VBG pH VBG pCO2 VBG HCO3 VBG Base Excess FiO2 Sodium 131.5 L Potassium 5.9 H Chloride 98 Carbon Dioxide 6 L* Anion Gap 28 H BUN 32 H Creatinine 3.51 H Est GFR ( Amer) 27 L Est GFR (Non-Af Amer) Glucose 672 H* Lactic Acid 2.0 Calcium 10.8 H Phosphorus Magnesium Total Bilirubin 1.0 AST 36 Alkaline Phosphatase 182 H Ammonia Total Protein 6.7 Albumin 4.1 Amylase Lipase TSH Free T4 Free T3 pg/mL Urine Color Urine Appearance Urine pH Ur Specific [place] Urine Protein Urine Glucose (UA) Urine Ketones Urine Blood Urine Nitrite Ur Leukocyte Esterase Urine WBC (Auto) Urine RBC (Auto) Blood Type Antibody Screen 05/22/19 05/22/19 05/22/19 13:00 13:58 14:24 WBC RBC Hgb Hct MCV MCH MCHC RDW Plt Count Seg Neutrophils % Carbonic Acid HCO3/H2CO3 Ratio ABG pH ABG pCO2 ABG pO2 ABG HCO3 ABG O2 Saturation ABG Base Excess VBG pH 6.79 L* VBG pCO2 44.4 VBG HCO3 6.6 L VBG Base Excess -28.6 FiO2 Sodium Potassium Chloride Carbon Dioxide Anion Gap BUN Creatinine Est GFR ( Amer) Est GFR (Non-Af Amer) Glucose Lactic Acid Calcium Phosphorus Magnesium Total Bilirubin AST Alkaline Phosphatase Ammonia Total Protein Albumin Amylase Lipase TSH Free T4 Free T3 pg/mL Urine Color YELLOW Urine Appearance CLOUDY Urine pH 6.0 Ur Specific [place] 1.021 Urine Protein 100 H Urine Glucose (UA) >=500 H Urine Ketones 80 H Urine Blood MODERATE H Urine Nitrite NEGATIVE Ur Leukocyte Esterase NEGATIVE Urine WBC (Auto) 18 Urine RBC (Auto) 43 Blood Type O POSITIVE Antibody Screen NEGATIVE 05/22/19 05/22/19 05/22/19 15:36 15:45 15:45 WBC RBC Hgb Hct MCV MCH MCHC RDW Plt Count Seg Neutrophils % Carbonic Acid 1.43 H HCO3/H2CO3 Ratio 5:1 ABG pH 6.80 L* ABG pCO2 47.6 H ABG pO2 92.1 ABG HCO3 7.2 L ABG O2 Saturation 86.5 L ABG Base Excess -27.6 VBG pH VBG pCO2 VBG HCO3 VBG Base Excess FiO2 40% Sodium 134.1 L Potassium 5.3 H Chloride 105 Carbon Dioxide 7 L* Anion Gap 22 H BUN 33 H Creatinine 2.99 H Est GFR ( Amer) 32 L Est GFR (Non-Af Amer) Glucose 604 H* Lactic Acid Calcium 9.0 Phosphorus 6.6 H Magnesium 2.6 H Total Bilirubin AST Alkaline Phosphatase Ammonia 33.8 H Total Protein Albumin Amylase 884 H Lipase 9007.3 H TSH Free T4 Free T3 pg/mL Urine Color Urine Appearance Urine pH Ur Specific [place] Urine Protein Urine Glucose (UA) Urine Ketones Urine Blood Urine Nitrite Ur Leukocyte Esterase Urine WBC (Auto) Urine RBC (Auto) Blood Type Antibody Screen 05/22/19 05/22/19 05/22/19 15:45 22:10 22:10 WBC RBC Hgb Hct MCV MCH MCHC RDW Plt Count Seg Neutrophils % Carbonic Acid HCO3/H2CO3 Ratio ABG pH ABG pCO2 ABG pO2 ABG HCO3 ABG O2 Saturation ABG Base Excess VBG pH VBG pCO2 VBG HCO3 VBG Base Excess FiO2 Sodium 136.5 L Potassium 3.5 L D Chloride 109 H Carbon Dioxide 6 L* Anion Gap 22 H BUN 41 H Creatinine 3.02 H Est GFR ( Amer) 32 L Est GFR (Non-Af Amer) Glucose 380 H Lactic Acid 1.0 Calcium 10.0 Phosphorus 1.6 L D Magnesium 2.5 H Total Bilirubin AST Alkaline Phosphatase Ammonia Total Protein Albumin Amylase Lipase TSH 1.45 Free T4 0.83 Free T3 pg/mL 1.64 L Urine Color Urine Appearance Urine pH Ur Specific [place] Urine Protein Urine Glucose (UA) Urine Ketones Urine Blood Urine Nitrite Ur Leukocyte Esterase Urine WBC (Auto) Urine RBC (Auto) Blood Type Antibody Screen 05/23/19 05/23/19 05/23/19 00:19 03:25 03:25 WBC RBC Hgb Hct MCV MCH MCHC RDW Plt Count Seg Neutrophils % Carbonic Acid 0.50 L HCO3/H2CO3 Ratio 15:1 ABG pH 7.28 L ABG pCO2 16.6 L* ABG pO2 112.7 H ABG HCO3 7.7 L ABG O2 Saturation 97.8 ABG Base Excess -16.5 VBG pH VBG pCO2 VBG HCO3 VBG Base Excess FiO2 40% Sodium 137.4 Potassium 2.9 L* Chloride 110 H Carbon Dioxide 13 L Anion Gap 14 BUN 46 H Creatinine 2.87 H Est GFR ( Amer) 33 L Est GFR (Non-Af Amer) Glucose 221 H Lactic Acid 1.2 Calcium 9.7 Phosphorus 0.7 L Magnesium 2.1 Total Bilirubin AST Alkaline Phosphatase Ammonia Total Protein Albumin Amylase Lipase TSH Free T4 Free T3 pg/mL Urine Color Urine Appearance Urine pH Ur Specific [place] Urine Protein Urine Glucose (UA) Urine Ketones Urine Blood Urine Nitrite Ur Leukocyte Esterase Urine WBC (Auto) Urine RBC (Auto) Blood Type Antibody Screen 05/23/19 05/23/19 05/23/19 03:25 03:25 06:45 WBC RBC Hgb Hct MCV MCH MCHC RDW Plt Count Seg Neutrophils % Carbonic Acid HCO3/H2CO3 Ratio ABG pH ABG pCO2 ABG pO2 ABG HCO3 ABG O2 Saturation ABG Base Excess VBG pH VBG pCO2 VBG HCO3 VBG Base Excess FiO2 Sodium Cancelled 137.4 Potassium Cancelled 2.7 L* Chloride Cancelled 112 H Carbon Dioxide Cancelled 12 L Anion Gap Cancelled 13 BUN Cancelled 50 H Creatinine Cancelled 3.23 H Est GFR ( Amer) Cancelled 29 L Est GFR (Non-Af Amer) Cancelled Glucose Cancelled 120 H Lactic Acid Calcium Cancelled 9.7 Phosphorus Cancelled < 0.5 L Magnesium 2.1 Total Bilirubin AST Alkaline Phosphatase Ammonia Total Protein Albumin Cancelled 2.5 L Amylase Lipase TSH Free T4 Free T3 pg/mL Urine Color Urine Appearance Urine pH Ur Specific [place] Urine Protein Urine Glucose (UA) Urine Ketones Urine Blood Urine Nitrite Ur Leukocyte Esterase Urine WBC (Auto) Urine RBC (Auto) Blood Type Antibody Screen 05/23/19 05/23/19 05/23/19 06:45 06:45 07:08 WBC Cancelled RBC Cancelled Hgb Cancelled Hct Cancelled MCV Cancelled MCH Cancelled MCHC Cancelled RDW Cancelled Plt Count Cancelled Seg Neutrophils % Cancelled Carbonic Acid 0.61 L HCO3/H2CO3 Ratio 19:1 ABG pH 7.39 ABG pCO2 20.3 L* ABG pO2 90.9 ABG HCO3 12.1 L ABG O2 Saturation 97.1 ABG Base Excess -10.9 VBG pH VBG pCO2 VBG HCO3 VBG Base Excess FiO2 40% Sodium Potassium Chloride Carbon Dioxide Anion Gap BUN Creatinine Est GFR ( Amer) Est GFR (Non-Af Amer) Glucose Lactic Acid 1.1 Calcium Phosphorus Magnesium Total Bilirubin AST Alkaline Phosphatase Ammonia Total Protein Albumin Amylase Lipase TSH Free T4 Free T3 pg/mL Urine Color Urine Appearance Urine pH Ur Specific [place] Urine Protein Urine Glucose (UA) Urine Ketones Urine Blood Urine Nitrite Ur Leukocyte Esterase Urine WBC (Auto) Urine RBC (Auto) Blood Type Antibody Screen 05/22/19 05/22/19 15:45 17:12 Creatine Kinase 816 H Troponin I 0.023 Impressions: Abdomen/Pelvis CT 05/22/19 00:00 IMPRESSION: Dense consolidation worrisome for aspiration pneumonia at the lung bases. Retroperitoneal inflammation along the pancreatic body and tail worrisome for acute pancreatitis. No pseudocyst is identified. No pancreatic duct or parenchyma calcifications. Head CT 05/22/19 00:00 IMPRESSION: NORMAL BRAIN CT WITHOUT CONTRAST. EVIDENCE OF ACUTE STROKE: NO. Chest X-Ray 05/23/19 06:00 IMPRESSION: Tubes and lines in good positioning. Stable right basilar atelectasis versus pneumonia. Progressive left basilar consolidation EKG: ST All labs, radiographs, diagnostic studies and EKGs were personally reviewed: Yes In addition, reports of radiographic and diagnostic studies were read: Yes Assessment and Plan - Diagnosis (1) Pancreatitis Qualifiers: Chronicity: acute Pancreatitis type: unspecified pancreatitis type Acute pancreatitis complication: unspecified Qualified Code(s): K85.90 - Acute pancreatitis without necrosis or infection, unspecified Is this a current diagnosis for this admission?: Yes Plan: The exact case is not known. My concern is necrosis given his continued acidosis, need for pressors and fever. If this continues will need surgical input. (2) Acute respiratory failure Qualifiers: Respiratory failure complication: unspecified whether with hypoxia or hypercapnia Qualified Code(s): J96.00 - Acute respiratory failure, unspecified whether with hypoxia or hypercapnia Is this a current diagnosis for this admission?: Yes Plan: On ventilator given severity of illness. (3) Acute renal failure (ARF) Qualifiers: Acute renal failure type: with other specified pathological lesion Quali fied Code(s): N17.8 - Other acute kidney failure Is this a current diagnosis for this admission?: Yes Plan: Cr 2.8. Not possible to get a CT with IV contrast at present. (4) DKA (diabetic ketoacidosis) Qualifiers: Diabetes mellitus type: type 1 Diabetes mellitus complication detail: without coma Qualified Code(s): E10.10 - Type 1 diabetes mellitus with ketoacidosis without coma Is this a current diagnosis for this admission?: Yes Plan: Certainly this is a confounding factor in his acidosis. We have shut off his insulin and will follow his BG and bicarb. Plan Summary: Treat his diabetes without insulin. Obtain surgical input if pancreatitis does not resolve or worsen. Maintain ventilator status given severity of illness and possible need for OR. Critical Time Critical Time (minutes): 40 Level of Care: ICU Anticipated discharge: Other Within: Other -: 1. The care of a critical patient is a dynamic process. This note is a service liaison representative synopsis but static in nature. The timeframe for treatments given in order is not necessary the actual time these treatments may have been done. 2. This patient requires critical care secondary to ongoing requirements for therapy not offered or safe outside the critical care environment. Transfer to a lower level of care with altered life or limb morbidity and mortality. 3. Multidisciplinary rounds completed. 4. ABCDE bundle addressed.
[2019-05-23 10:29] LABS: HEMATOCRIT 31.6 % (37.9-51.0); MEAN CORPUSCULAR HGB CONC 35.8 g/dL (32.0-36.0); PLATELET COUNT 121 10^3/uL (150-450); RED CELL DISTRIBUTION WIDTH 13.9 % (11.5-14.0); WHITE BLOOD COUNT 6.6 10^3/uL (4.0-10.5)
[2019-05-23 10:36] LABS: HEMOGLOBIN 11.3 g/dL (13.5-17.0); MEAN CORPUSCULAR VOLUME 81 fl (80-97)
[2019-05-23 10:43] LABS: BLOOD UREA NITROGEN 52 mg/dL (7-20); CALCIUM 9.5 mg/dL (8.4-10.2); CHLORIDE 112 mmol/L (98-107); GLUCOSE 228 mg/dL (75-110); PHOSPHORUS 1.1 mg/dL (2.5-4.5); POTASSIUM 3.6 mmol/L (3.6-5.0)
[2019-05-23 10:48] LABS: ANION GAP 17 (5-19)
[2019-05-23 10:53] LABS: CARBON DIOXIDE 9 mmol/L (22-30)
[2019-05-23 11:06] LABS: ABSOLUTE LYMPHOCYTES# (MANUAL) 0.5 10^3/uL (0.5-4.7); ABSOLUTE MONOCYTES # (MANUAL) 1.2 10^3/uL (0.1-1.4); BAND NEUTROPHILS % (MANUAL) 4 % (3-5); BASOPHILS % (MANUAL) 0 % (0-2); EOSINOPHILS % (MANUAL) 0 % (0-6); LYMPHOCYTES % (MANUAL) 7 % (13-45); MONOCYTES % (MANUAL) 18 % (3-13); NUCLEATED RED BLOOD CELLS 1 /100 WBC (0); SEGMENTED NEUTROPHILS % (MAN) 71 % (42-78); TOTAL CELLS COUNTED 100
[2019-05-23 11:07] LABS: PLATELET COMMENT DECREASED; SMUDGE CELLS PRESENT; TOXIC VACUOLATION PRESENT
--- NOTE | 2019-05-23 11:13 | Progress Note ---
Provider Note Provider Note: Patient seen by me and Dr. Luna. His abdomen is tender but no rebound. Awake enough to follow commands. No evidence of necrotic pancreatitis. No surgery. Re- explore a recurrence of DKA. Time 30 minutes of critical care.
--- NOTE | 2019-05-23 11:35 | EKG REPORT ---
SEVERITY:- BORDERLINE ECG - SINUS RHYTHM BORDERLINE PROLONGED QT INTERVAL : Confirmed by: Kristi Flores MD 23-May-2019 11:35:04
--- NOTE | 2019-05-23 11:37 | PDOC CONSULTATION ---
Consultation Consult Date: 05/23/19 Attending physician:: MARYANN GOTTLIEB Provider Consulted: PEGGY KLINE Consult reason:: Rule out necrotizing pancreatitis History of Present Illness Admission Date/PCP: 05/22/19 15:48 History of Present Illness: LUCIANA VIVEROS is a 23 year old male Presents the emergency department via ground rescue after being found down on a commode in his cell at the local group home. He was brought to the emergency department at [facility] yesterday, unresponsive, [place] Coma Scale of 4. He was intubated, started on IV fluids. Laboratory profile suggested sepsis , metabolic acidosis likely due to DKA. He had a CT scan of the head abdomen and pelvis which showed no significant pathologic findings; there was some retroperitoneal fluid adjacent to the mid and distal pancreas. No evidence of free air, free fluid: Some consolidation of the lung bases bilaterally. Patient was taken to the intensive care unit, started on levo fed for hypotension, resuscitated with additional IV fluids however overnight and into today, patient has persisting metabolic acidosis, and worsening acute renal failure. His toxicology screen has been essentially unremarkable. Surgery was consulted to rule out necrotizing pancreatitis. Past Medical History Past Medical History: None known; Unable to obtain as patient is intubated Cardiac Medical History: Reports: None Pulmonary Medical History: Reports: None EENT Medical History: Reports: None Neurological Medical History: Reports: None Endocrine Medical History: Reports: None Denies: Diabetes Mellitus Type 1, Diabetes Mellitus Type 2 Renal/ Medical History: Reports: None Malignancy Medical History: Reports: None GI Medical History: Reports: None Musculoskeltal Medical History: Reports: None Skin Medical History: Reports: None Psychiatric Medical History: Reports: Substance Abuse Traumatic Medical History: Denies: None Hematology: Reports: None Infectious Medical History: Reports: None Past Surgical History Past Surgical History: Unable to obtain as patient is intubated. Past Surgical History: Reports: None Social History Information Source: Patient Lives with: Other - Prisoner no further history obtainable as patient is intubated Smoking Status: Smoker,Current Status Unk Hx Recreational Drug Use: Yes Drugs: Heroin Family History Family History: Other - Unknown as patient is intubated unknown Parental Family History Reviewed: No Children Family History Reviewed: No Sibling(s) Family History Reviewed.: No Medication/Allergy Home Medications: No Home Medications 05/22/19 Allergies/Adverse Reactions: No Known Allergies Allergy (Unverified 05/22/19 13:20) Review of Systems ROS unobtainable: Due to mental status - Patient is intubated, therefore view of systems cannot be obtained Physical Exam Vital Signs: Temp Pulse Resp BP Pulse Ox 100.9 F H 82 35 H 108/60 98 05/23/19 10:00 05/23/19 10:00 05/23/19 10:00 05/23/19 10:00 05/23/19 10:00 Intake & Output 05/22/19 05/23/19 05/24/19 06:59 06:59 06:59 Intake Total 6034.2 243 Output Total 190 35 Balance 5844.2 208 Weight 95.7 kg General appearance: PRESENT: other - She is intubated with support lines including oral tracheal tube, nasogastric tube and central line in the neck. He is somewhat pale. He does follow simple commands when sedation is off. Head exam: PRESENT: other - Mild umesh-orbital edema Eye exam: PRESENT: other - No icterus Mouth exam: PRESENT: dry mucosa - Support tubes in place Neck exam: PRESENT: other - Central line right neck site is intact Respiratory exam: PRESENT: rhonchi Cardiovascular exam: PRESENT: tachycardia Pulses: PRESENT: normal carotid pulses, normal radial pulses, normal femoral pulses, other - Unable to feel pedal pulses likely due to dermatologic vasoconstriction GI/Abdominal exam: PRESENT: other - Soft, not distended doughy feeling; no rigidity no guarding. No umbilical or groin hernias Rectal exam: PRESENT: deferred Extremities exam: PRESENT: other - Developing pedal edema Musculoskeletal exam: PRESENT: other - Patient sedated intubated Neurological exam: PRESENT: other - Patient sedated and intubated Psychiatric exam: PRESENT: other - Sedated and intubated Skin exam: PRESENT: other - Dry, pale Results Laboratory Results: 05/23/19 10:10 05/23/19 10:10 05/22/19 05/22/19 05/22/19 13:00 13:00 13:00 WBC 26.7 H RBC 5.34 Hgb 15.1 Hct 47.1 MCV 88 MCH 28.4 MCHC 32.1 RDW 15.1 H Plt Count 347 Seg Neutrophils % Not Reportable Carbonic Acid HCO3/H2CO3 Ratio ABG pH ABG pCO2 ABG pO2 ABG HCO3 ABG O2 Saturation ABG Base Excess VBG pH VBG pCO2 VBG HCO3 VBG Base Excess FiO2 Sodium 131.5 L Potassium 5.9 H Chloride 98 Carbon Dioxide 6 L* Anion Gap 28 H BUN 32 H Creatinine 3.51 H Est GFR ( Amer) 27 L Est GFR (Non-Af Amer) Glucose 672 H* Lactic Acid 2.0 Calcium 10.8 H Phosphorus Magnesium Total Bilirubin 1.0 AST 36 Alkaline Phosphatase 182 H Ammonia Total Protein 6.7 Albumin 4.1 Amylase Lipase TSH Free T4 Free T3 pg/mL Urine Color Urine Appearance Urine pH Ur Specific [place] Urine Protein Urine Glucose (UA) Urine Ketones Urine Blood Urine Nitrite Ur Leukocyte Esterase Urine WBC (Auto) Urine RBC (Auto) Blood Type Antibody Screen 05/22/19 05/22/19 05/22/19 13:00 13:58 14:24 WBC RBC Hgb Hct MCV MCH MCHC RDW Plt Count Seg Neutrophils % Carbonic Acid HCO3/H2CO3 Ratio ABG pH ABG pCO2 ABG pO2 ABG HCO3 ABG O2 Saturation ABG Base Excess VBG pH 6.79 L* VBG pCO2 44.4 VBG HCO3 6.6 L VBG Base Excess -28.6 FiO2 Sodium Potassium Chloride Carbon Dioxide Anion Gap BUN Creatinine Est GFR ( Amer) Est GFR (Non-Af Amer) Glucose Lactic Acid Calcium Phosphorus Magnesium Total Bilirubin AST Alkaline Phosphatase Ammonia Total Protein Albumin Amylase Lipase TSH Free T4 Free T3 pg/mL Urine Color YELLOW Urine Appearance CLOUDY Urine pH 6.0 Ur Specific [place] 1.021 Urine Protein 100 H Urine Glucose (UA) >=500 H Urine Ketones 80 H Urine Blood MODERATE H Urine Nitrite NEGATIVE Ur Leukocyte Esterase NEGATIVE Urine WBC (Auto) 18 Urine RBC (Auto) 43 Blood Type O POSITIVE Antibody Screen NEGATIVE 05/22/19 05/22/19 05/22/19 15:36 15:45 15:45 WBC RBC Hgb Hct MCV MCH MCHC RDW Plt Count Seg Neutrophils % Carbonic Acid 1.43 H HCO3/H2CO3 Ratio 5:1 ABG pH 6.80 L* ABG pCO2 47.6 H ABG pO2 92.1 ABG HCO3 7.2 L ABG O2 Saturation 86.5 L ABG Base Excess -27.6 VBG pH VBG pCO2 VBG HCO3 VBG Base Excess FiO2 40% Sodium 134.1 L Potassium 5.3 H Chloride 105 Carbon Dioxide 7 L* Anion Gap 22 H BUN 33 H Creatinine 2.99 H Est GFR ( Amer) 32 L Est GFR (Non-Af Amer) Glucose 604 H* Lactic Acid Calcium 9.0 Phosphorus 6.6 H Magnesium 2.6 H Total Bilirubin AST Alkaline Phosphatase Ammonia 33.8 H Total Protein Albumin Amylase 884 H Lipase 9007.3 H TSH Free T4 Free T3 pg/mL Urine Color Urine Appearance Urine pH Ur Specific [place] Urine Protein Urine Glucose (UA) Urine Ketones Urine Blood Urine Nitrite Ur Leukocyte Esterase Urine WBC (Auto) Urine RBC (Auto) Blood Type Antibody Screen 05/22/19 05/22/19 05/22/19 15:45 22:10 22:10 WBC RBC Hgb Hct MCV MCH MCHC RDW Plt Count Seg Neutrophils % Carbonic Acid HCO3/H2CO3 Ratio ABG pH ABG pCO2 ABG pO2 ABG HCO3 ABG O2 Saturation ABG Base Excess VBG pH VBG pCO2 VBG HCO3 VBG Base Excess FiO2 Sodium 136.5 L Potassium 3.5 L D Chloride 109 H Carbon Dioxide 6 L* Anion Gap 22 H BUN 41 H Creatinine 3.02 H Est GFR ( Amer) 32 L Est GFR (Non-Af Amer) Glucose 380 H Lactic Acid 1.0 Calcium 10.0 Phosphorus 1.6 L D Magnesium 2.5 H Total Bilirubin AST Alkaline Phosphatase Ammonia Total Protein Albumin Amylase Lipase TSH 1.45 Free T4 0.83 Free T3 pg/mL 1.64 L Urine Color Urine Appearance Urine pH Ur Specific [place] Urine Protein Urine Glucose (UA) Urine Ketones Urine Blood Urine Nitrite Ur Leukocyte Esterase Urine WBC (Auto) Urine RBC (Auto) Blood Type Antibody Screen 05/23/19 05/23/19 05/23/19 00:19 03:25 03:25 WBC RBC Hgb Hct MCV MCH MCHC RDW Plt Count Seg Neutrophils % Carbonic Acid 0.50 L HCO3/H2CO3 Ratio 15:1 ABG pH 7.28 L ABG pCO2 16.6 L* ABG pO2 112.7 H ABG HCO3 7.7 L ABG O2 Saturation 97.8 ABG Base Excess -16.5 VBG pH VBG pCO2 VBG HCO3 VBG Base Excess FiO2 40% Sodium 137.4 Potassium 2.9 L* Chloride 110 H Carbon Dioxide 13 L Anion Gap 14 BUN 46 H Creatinine 2.87 H Est GFR ( Amer) 33 L Est GFR (Non-Af Amer) Glucose 221 H Lactic Acid 1.2 Calcium 9.7 Phosphorus 0.7 L Magnesium 2.1 Total Bilirubin AST Alkaline Phosphatase Ammonia Total Protein Albumin Amylase Lipase TSH Free T4 Free T3 pg/mL Urine Color Urine Appearance Urine pH Ur Specific [place] Urine Protein Urine Glucose (UA) Urine Ketones Urine Blood Urine Nitrite Ur Leukocyte Esterase Urine WBC (Auto) Urine RBC (Auto) Blood Type Antibody Screen 05/23/19 05/23/19 05/23/19 03:25 03:25 06:45 WBC RBC Hgb Hct MCV MCH MCHC RDW Plt Count Seg Neutrophils % Carbonic Acid HCO3/H2CO3 Ratio ABG pH ABG pCO2 ABG pO2 ABG HCO3 ABG O2 Saturation ABG Base Excess VBG pH VBG pCO2 VBG HCO3 VBG Base Excess FiO2 Sodium Cancelled 137.4 Potassium Cancelled 2.7 L* Chloride Cancelled 112 H Carbon Dioxide Cancelled 12 L Anion Gap Cancelled 13 BUN Cancelled 50 H Creatinine Cancelled 3.23 H Est GFR ( Amer) Cancelled 29 L Est GFR (Non-Af Amer) Cancelled Glucose Cancelled 120 H Lactic Acid Calcium Cancelled 9.7 Phosphorus Cancelled < 0.5 L Magnesium 2.1 Total Bilirubin AST Alkaline Phosphatase Ammonia Total Protein Albumin Cancelled 2.5 L Amylase Lipase TSH Free T4 Free T3 pg/mL Urine Color Urine Appearance Urine pH Ur Specific [place] Urine Protein Urine Glucose (UA) Urine Ketones Urine Blood Urine Nitrite Ur Leukocyte Esterase Urine WBC (Auto) Urine RBC (Auto) Blood Type Antibody Screen 05/23/19 05/23/19 05/23/19 06:45 06:45 07:08 WBC Cancelled RBC Cancelled Hgb Cancelled Hct Cancelled MCV Cancelled MCH Cancelled MCHC Cancelled RDW Cancelled Plt Count Cancelled Seg Neutrophils % Cancelled Carbonic Acid 0.61 L HCO3/H2CO3 Ratio 19:1 ABG pH 7.39 ABG pCO2 20.3 L* ABG pO2 90.9 ABG HCO3 12.1 L ABG O2 Saturation 97.1 ABG Base Excess -10.9 VBG pH VBG pCO2 VBG HCO3 VBG Base Excess FiO2 40% Sodium Potassium Chloride Carbon Dioxide Anion Gap BUN Creatinine Est GFR ( Amer) Est GFR (Non-Af Amer) Glucose Lactic Acid 1.1 Calcium Phosphorus Magnesium Total Bilirubin AST Alkaline Phosphatase Ammonia Total Protein Albumin Amylase Lipase TSH Free T4 Free T3 pg/mL Urine Color Urine Appearance Urine pH Ur Specific [place] Urine Protein Urine Glucose (UA) Urine Ketones Urine Blood Urine Nitrite Ur Leukocyte Esterase Urine WBC (Auto) Urine RBC (Auto) Blood Type Antibody Screen 05/23/19 05/23/19 05/23/19 10:10 10:10 10:10 WBC 6.6 RBC 3.90 L Hgb 11.3 L D Hct 31.6 L MCV 81 D MCH 29.0 MCHC 35.8 RDW 13.9 Plt Count 121 L Seg Neutrophils % Not Reportable Carbonic Acid HCO3/H2CO3 Ratio ABG pH ABG pCO2 ABG pO2 ABG HCO3 ABG O2 Saturation ABG Base Excess VBG pH VBG pCO2 VBG HCO3 VBG Base Excess FiO2 Sodium 138.1 Potassium 3.6 Chloride 112 H Carbon Dioxide 9 L* Anion Gap 17 BUN 52 H Creatinine 3.52 H Est GFR ( Amer) 26 L Est GFR (Non-Af Amer) Glucose 228 H Lactic Acid 0.9 Calcium 9.5 Phosphorus 1.1 L Magnesium 2.1 Total Bilirubin AST Alkaline Phosphatase Ammonia Total Protein Albumin Amylase Lipase TSH Free T4 Free T3 pg/mL Urine Color Urine Appearance Urine pH Ur Specific [place] Urine Protein Urine Glucose (UA) Urine Ketones Urine Blood Urine Nitrite Ur Leukocyte Esterase Urine WBC (Auto) Urine RBC (Auto) Blood Type Antibody Screen 05/22/19 05/22/19 15:45 17:12 Creatine Kinase 816 H Troponin I 0.023 Impressions: Abdomen/Pelvis CT 05/22/19 00:00 IMPRESSION: Dense consolidation worrisome for aspiration pneumonia at the lung bases. Retroperitoneal inflammation along the pancreatic body and tail worrisome for acute pancreatitis. No pseudocyst is identified. No pancreatic duct or parenchyma calcifications. Head CT 05/22/19 00:00 IMPRESSION: NORMAL BRAIN CT WITHOUT CONTRAST. EVIDENCE OF ACUTE STROKE: NO. Chest X-Ray 05/23/19 06:00 IMPRESSION: Tubes and lines in good positioning. Stable right basilar atelectasis versus pneumonia. Progressive left basilar consolidation Assessment & Plan - Diagnosis (1) Pancreatitis Qualifiers: Chronicity: acute Pancreatitis type: unspecified pancreatitis type Acute pancreatitis complication: unspecified Qualified Code(s): K85.90 - Acute pancreatitis without necrosis or infection, unspecified Is this a current diagnosis for this admission?: Yes Plan: Impression: Critically ill 23-year-old white male, with no known history of medical problems, in the intensive care unit after 18 hours of fluid, antibiotic, fluid, antibiotic, and other medical resuscitation without significant improvement in metabolic acidosis, and progressive renal failure. Patient may have acute pancreatitis based on admission lipase level of 9000, and minimal retroperitoneal fluid on CT scan; however patient does not appear to have an acute abdomen based on physical examination, and the CT findings not suggest implicated pancreatitis such as necrotizing process. Recommendations: 1. I Do not believe the abdomen requires any intervention such as a tap or exploration at this time. 2. I agree with Dr. Gottlieb, managing cognitive engineer, that this patient is very sick: The exact etiology of his sepsis, acute renal failure, and hemodynamic instability remain unclear; currently we are working on the DKA hypothesis as the putative cause of this patient's acute deterioration. Other sources such as aspiration pneumonitis, pneumonia may be contributing to patient's decline. 3. I suggested withholding any medications and antibiotics that may be nephrotoxic. Agree with continued IV fluid meds, empiric antibiotic therapy, ventilatory support. 4. We will continue to follow patient closely with you (2) Acute renal failure (ARF) Qualifiers: Acute renal failure type: with other specified pathological lesion Qualified Code(s): N17.8 - Other acute kidney failure Is this a current diagnosis for this admission?: Yes (3) Coma Qualifiers: Coma depth: [place] coma 3-8 Coma timing: at arrival to emergency department Qualified Code(s): R40.2432 - [place] coma scale score 3-8, at arrival to emergency department Is this a current diagnosis for this admission?: Yes (4) DKA (diabetic ketoacidosis) Qualifiers: Diabetes mellitus type: type 1 Diabetes mellitus complication detail: without coma Qualified Code(s): E10.10 - Type 1 diabetes mellitus with ketoacidosis without coma Is this a current diagnosis for this admission?: Yes (5) Heroin abuse Is this a current diagnosis for this admission?: Yes - Time Time Spent: 50 to 70 Minutes Smoking Cessation Education: over 10 minutes Medications reviewed and adjusted accordingly: Yes - Inpatient Certification Based on my medical assessment, after consideration of the patient's comorbidities, presenting symptoms, or acuity I expect that the services needed warrant INPATIENT care.: Yes I certify that my determination is in accordance with my understanding of Medicare's requirements for reasonable and necessary INPATIENT services [42 CFR 412.3e].: Yes Medical Necessity: Need for Neurological Checks, Need for Pain Control, Need for IV Antibiotics
[2019-05-23] MEDS ORDERED: ETOMIDATE INJ/PF 20 MG/10 ML SDV IV ONE (12:00)
[2019-05-23] MEDS ORDERED: VECURONIUM BROMIDE INJ 10 MG VIAL IV ONE (12:00)
[2019-05-23] MEDS: DEXMEDETOMIDINE IN NS 400 MCG/100 ML RTUPB IV PRN ×3 (13:39→23:12)
[2019-05-23 14:27] LABS: VENOUS BLOOD BASE EXCESS -14.7 mmol/L; VENOUS BLOOD HCO3 9.9 mmol/L (20-32); VENOUS BLOOD PH 7.29 (7.30-7.42)
[2019-05-23] MEDS ORDERED: PANTOPRAZOLE SODIUM 40 MG VIAL IV SCH (15:00)
[2019-05-23 16:40] LABS: ANION GAP 16 (5-19); BLOOD UREA NITROGEN 61 mg/dL (7-20); CALCIUM 9.6 mg/dL (8.4-10.2); CHLORIDE 110 mmol/L (98-107); GLUCOSE 339 mg/dL (75-110); PHOSPHORUS 1.1 mg/dL (2.5-4.5)
[2019-05-23 16:45] LABS: CARBON DIOXIDE 10 mmol/L (22-30); POTASSIUM 2.9 mmol/L (3.6-5.0)
[2019-05-23] MEDS ORDERED: POTASSI CL 20 MEQ/50 ML RIDER 20 MEQ/50 ML RTUPB IV ONE (16:57)
[2019-05-23] MEDS ORDERED: NORMAL SALINE 1000 ML 1,000 ML IV PRN (17:16)
[2019-05-23 20:34] LABS: PHOSPHORUS 3.9 mg/dL (2.5-4.5)
[2019-05-23 21:00] LABS: ANION GAP 14 (5-19); BLOOD UREA NITROGEN 63 mg/dL (7-20); CALCIUM 9.2 mg/dL (8.4-10.2); CHLORIDE 114 mmol/L (98-107); GLUCOSE 197 mg/dL (75-110)
[2019-05-23 21:10] LABS: CREATINE KINASE MB 13.4 ng/mL (<4.55)
[2019-05-23 21:14] LABS: TROPONIN I 0.681 ng/mL
[2019-05-23 21:16] LABS: CARBON DIOXIDE 10 mmol/L (22-30); POTASSIUM 4.1 mmol/L (3.6-5.0)
--- NOTE | 2019-05-24 00:47 | PDOC DISCHARGE SUMMARY ---
<LATONIA BULL - Last Filed: 05/24/19 00:40> Impression - Admit/DC Date/PCP Admission Date/Primary Care Provider: 05/22/19 15:48 Discharge Date: 05/23/19 - Discharge Diagnosis (1) Acute renal failure (ARF) Is this a current diagnosis for this admission?: Yes (2) Acute respiratory failure Is this a current diagnosis for this admission?: Yes (3) DKA (diabetic ketoacidosis) Is this a current diagnosis for this admission?: Yes (4) Dehydration Is this a current diagnosis for this admission?: Yes (5) Heroin abuse Is this a current diagnosis for this admission?: Yes - Assessment Summary: See below. - Additional Information Home Medications: No Home Medications 05/22/19 History of Present Illiness History of Present Illness: LUCIANA VIVEROS is a 23 year old male with a known history of heroin abuse. He was recently incarcerated and was [facility] while in [facility]. He presented to [facility] on May 22 in respiratory failure. He was found to have acute renal failure and DKA with a profound metabolic acidosis and significant hypotension requiring vasoactive medications. CT of abdomen on the day of admission showed retroperitoneal inflammation along the pancreatic body and tail with concern for pancreatitis. Lung bases showed some dense consolidation with possible aspiration pneumonia. Patient was transferred to the intensive care unit. Central vascular access established and patient was placed on LR, insulin drip and sedated with both fentanyl and Precedex. He has required intermittent levophed to maintain mean arterial pressure of 70 mmHg. He has required multiple boluses of sodium bicarbonate with intermittent sodium bicarb drip. Despite fluid resuscitation and insulin drip over the past 24 hours, he continues to have a profound metabolic acidosis. This evening he also developed ST elevations. Troponin remains within normal range. Hospital Course Hospital Course: Despite continued fluid resuscitation and insulin drip. The patient has continued to have a profound metabolic acidosis which has been partially compensated by an increased respiratory rate in the 30s to 40s. His blood pressure has also been labile and he has required intermittent support with norepinephrine. Given his CT scan which is worrisome for pancreatitis, as well as his persistent metabolic acidosis, he has being transferred to a tertiary care hospital for further support. Physical Exam Vital Signs: Temp Pulse Resp BP Pulse Ox 99.5 F 73 29 H 105/61 100 05/23/19 19:58 05/23/19 18:00 05/23/19 23:00 05/23/19 22:53 05/23/19 23:00 Intake & Output 05/22/19 05/23/19 05/24/19 06:59 06:59 06:59 Intake Total 6034.2 2660.2 Output Total 190 840 Balance 5844.2 1820.2 Weight 95.7 kg 95.7 kg General appearance: PRESENT: severe distress, other - Intubated and sedated. Calm and somewhat arousable. Head exam: PRESENT: atraumatic, normocephalic Neck exam: ABSENT: carotid bruit, JVD, tenderness, tracheal deviation Respiratory exam: PRESENT: tachypnea. ABSENT: rales, rhonchi, wheezes Cardiovascular exam: PRESENT: +S1, +S2, tachycardia Pulses: PRESENT: normal carotid pulses, normal radial pulses, +2 pedal pulses bilateral Vascular exam: PRESENT: normal capillary refill GI/Abdominal exam: PRESENT: diminished bowel sounds, soft. ABSENT: distended, guarding, mass, organolmegaly, tenderness Rectal exam: PRESENT: deferred Extremities exam: ABSENT: joint swelling, pedal edema Musculoskeletal exam: ABSENT: deformity, normal inspection Neurological exam: PRESENT: other - On fentanyl and Precedex. Patient is able to answer appropriately with head nodding. Often seems disoriented but is redirected easily. Focused psych exam: PRESENT: other - Unable to assess due to endotracheal intubation. Patient however seems calm and is easily redirected. Skin exam: PRESENT: normal color. ABSENT: abrasion, cyanosis, mottled Results Laboratory Results: WBC 6.6 10^3/uL (4.0-10.5) 05/23/19 10:10 RBC 3.90 10^6/uL (4.35-5.55) L 05/23/19 10:10 Hgb 11.3 g/dL (13.5-17.0) L D 05/23/19 10:10 Hct 31.6 % (37.9-51.0) L 05/23/19 10:10 MCV 81 fl (80-97) D 05/23/19 10:10 MCH 29.0 pg (27.0-33.4) 05/23/19 10:10 MCHC 35.8 g/dL (32.0-36.0) 05/23/19 10:10 RDW 13.9 % (11.5-14.0) 05/23/19 10:10 Plt Count 121 10^3/uL (150-450) L 05/23/19 10:10 Lymph % (Auto) Not Reportable 05/23/19 10:10 [place] % (Auto) Not Reportable 05/23/19 10:10 Eos % (Auto) Not Reportable 05/23/19 10:10 Baso % (Auto) Not Reportable 05/23/19 10:10 Absolute Neuts (auto) Not Reportable 05/23/19 10:10 Absolute Lymphs (auto) Not Reportable 05/23/19 10:10 Absolute Monos (auto) Not Reportable 05/23/19 10:10 Absolute Eos (auto) Not Reportable 05/23/19 10:10 Absolute Basos (auto) Not Reportable 05/23/19 10:10 Total Counted 100 05/23/19 10:10 Seg Neutrophils % Not Reportable 05/23/19 10:10 Seg Neuts % (Manual) 71 % (42-78) 05/23/19 10:10 Band Neutrophils % 4 % (3-5) 05/23/19 10:10 Lymphocytes % (Manual) 7 % (13-45) L 05/23/19 10:10 Monocytes % (Manual) 18 % (3-13) H 05/23/19 10:10 Eosinophils % (Manual) 0 % (0-6) 05/23/19 10:10 Basophils % (Manual) 0 % (0-2) 05/23/19 10:10 Abs Neuts (Manual) 5.0 10^3/uL (1.7-8.2) 05/23/19 10:10 Abs Lymphs (Manual) 0.5 10^3/uL (0.5-4.7) 05/23/19 10:10 Abs Monocytes (Manual) 1.2 10^3/uL (0.1-1.4) 05/23/19 10:10 Absolute Eos (Manual) 0.0 10^3/uL (0.0-0.6) 05/23/19 10:10 Abs Basophils (Manual) 0.0 10^3/uL (0.0-0.2) 05/23/19 10:10 Nucleated RBCs 1 /100 WBC (0) 05/23/19 10:10 Smudge Cells PRESENT 05/23/19 10:10 Toxic Vacuolation PRESENT 05/23/19 10:10 Platelet Estimate Cancelled 05/23/19 06:45 Platelet Comment DECREASED 05/23/19 10:10 Anisocytosis SLIGHT 05/22/19 13:00 PT 14.8 SEC (11.4-15.4) 05/22/19 17:12 INR 1.15 05/22/19 17:12 APTT 27.7 SEC (23.5-35.8) 05/22/19 17:12 Carbonic Acid 0.61 mmol/L (1.05-1.35) L 05/23/19 07:08 HCO3/H2CO3 Ratio 19:1 05/23/19 07:08 ABG pH 7.39 (7.35-7.45) 05/23/19 07:08 ABG pCO2 20.3 mmHg (35-45) L* 05/23/19 07:08 ABG pO2 90.9 mmHg (80-100) 05/23/19 07:08 ABG HCO3 12.1 mmol/L (20-24) L 05/23/19 07:08 ABG Total CO2 12.7 mmol/L (23-27) L 05/23/19 07:08 ABG O2 Saturation 97.1 % (94-98) 05/23/19 07:08 ABG Base Excess -10.9 mmol/L 05/23/19 07:08 VBG pH 7.29 (7.30-7.42) L 05/23/19 14:20 VBG pCO2 21.0 mmHg (35-63) L 05/23/19 14:20 VBG HCO3 9.9 mmol/L (20-32) L 05/23/19 14:20 VBG Base Excess -14.7 mmol/L 05/23/19 14:20 FiO2 40% 05/23/19 07:08 Sodium 138.2 mmol/L (137-145) 05/23/19 20:03 Potassium 4.1 mmol/L (3.6-5.0) D 05/23/19 20:03 Chloride 114 mmol/L (98-107) H 05/23/19 20:03 Carbon Dioxide 10 mmol/L (22-30) L* 05/23/19 20:03 Anion Gap 14 (5-19) 05/23/19 20:03 BUN 63 mg/dL (7-20) H 05/23/19 20:03 Creatinine 4.12 mg/dL (0.52-1.25) H 05/23/19 20:03 Est GFR ( Amer) 22 (>60) L 05/23/19 20:03 Est GFR (Non-Af Amer) Cancelled 05/23/19 03:25 Est GFR (MDRD) Non-Af 18 (>60) L 05/23/19 20:03 Glucose 197 mg/dL (75-110) H 05/23/19 20:03 POC Glucose 255 mg/dL (70-110) H 05/23/19 23:05 Hemoglobin A1c % 12.0 % (4.7-6.0) H 05/22/19 15:45 Lactic Acid 0.9 mmol/L (0.7-2.1) 05/23/19 10:10 Calcium 9.2 mg/dL (8.4-10.2) 05/23/19 20:03 Phosphorus 3.9 mg/dL (2.5-4.5) D 05/23/19 20:03 Magnesium 2.1 mg/dL (1.6-2.3) 05/23/19 20:03 Total Bilirubin 1.0 mg/dL (0.2-1.3) 05/22/19 13:00 Direct Bilirubin 0.5 mg/dL (0.0-0.4) H 05/22/19 13:00 Neonat Total Bilirubin Not Reportable 05/22/19 13:00 Neonat Direct Bilirubin Not Reportable 05/22/19 13:00 Neonat Indirect Bili Not Reportable 05/22/19 13:00 AST 36 U/L (17-59) 05/22/19 13:00 ALT 18 U/L (<50) 05/22/19 13:00 Alkaline Phosphatase 182 U/L (38-126) H 05/22/19 13:00 Ammonia 33.8 umol/L (9-33) H 05/22/19 15:45 Creatine Kinase 820 U/L (55-170) H 05/23/19 20:22 CK-MB (CK-2) 13.40 ng/mL (<4.55) H 05/23/19 20:22 Troponin I 0.681 ng/mL 05/23/19 20:22 Total Protein 6.7 g/dL (6.3-8.2) 05/22/19 13:00 Albumin 2.5 g/dL (3.5-5.0) L 05/23/19 03:25 Albumin Cancelled 05/23/19 03:25 Amylase 884 U/L (30-110) H 05/22/19 15:45 Lipase 9007.3 U/L (23-300) H 05/22/19 15:45 EGFR Cancelled 05/23/19 03:25 TSH 1.45 uIU/mL (0.47-4.68) 05/22/19 15:45 Free T4 0.83 ng/dL (0.78-2.19) 05/22/19 15:45 Free T3 pg/mL 1.64 pg/mL (2.77-5.27) L 05/22/19 15:45 Urine Color YELLOW 05/22/19 14:24 Urine Appearance CLOUDY 05/22/19 14:24 Urine pH 6.0 (5.0-9.0) 05/22/19 14:24 Ur Specific [place] 1.021 05/22/19 14:24 Urine Protein 100 mg/dL (NEGATIVE) H 05/22/19 14:24 Urine Glucose (UA) >=500 mg/dL (NEGATIVE) H 05/22/19 14:24 Urine Ketones 80 mg/dL (NEGATIVE) H 05/22/19 14:24 Urine Blood MODERATE (NEGATIVE) H 05/22/19 14:24 Urine Nitrite NEGATIVE (NEGATIVE) 05/22/19 14:24 Urine Bilirubin NEGATIVE (NEGATIVE) 05/22/19 14:24 Urine Urobilinogen NEGATIVE mg/dL (<2.0) 05/22/19 14:24 Ur Leukocyte Esterase NEGATIVE (NEGATIVE) 05/22/19 14:24 Urine WBC (Auto) 18 /HPF 05/22/19 14:24 Urine RBC (Auto) 43 /HPF 05/22/19 14:24 Urine Bacteria (Auto) 1+ /HPF 05/22/19 14:24 Squamous Epi Cells Auto <1 /HPF 05/22/19 14:24 Urine Mucus (Auto) RARE /LPF 05/22/19 14:24 Urine Ascorbic Acid NEGATIVE (NEGATIVE) 05/22/19 14:24 POC Gastric Occult Bld POSITIVE (NEGATIVE) 05/22/19 14:06 POC Stool Occult Blood POSITIVE (NEGATIVE) 05/22/19 14:06 Urine Opiates Screen NEGATIVE 05/22/19 14:24 Urine Methadone Screen NEGATIVE 05/22/19 14:24 Ur Barbiturates Screen NEGATIVE 05/22/19 14:24 Ur Phencyclidine Scrn NEGATIVE 05/22/19 14:24 Ur Amphetamines Screen NEGATIVE 05/22/19 14:24 U Benzodiazepines Scrn UNCONFIRMED POSITIVE 05/22/19 14:24 Urine Cocaine Screen NEGATIVE 05/22/19 14:24 U Marijuana (THC) Screen NEGATIVE 05/22/19 14:24 Slides for Path Review Cancelled 05/23/19 06:45 Blood Type O POSITIVE 05/22/19 13:58 Antibody Screen NEGATIVE 05/22/19 13:58 05/22/19 05/23/19 17:12 20:22 CK-MB (CK-2) 13.40 H Troponin I 0.023 0.681 Impressions: Abdomen/Pelvis CT 05/22/19 00:00 IMPRESSION: Dense consolidation worrisome for aspiration pneumonia at the lung bases. Retroperitoneal inflammation along the pancreatic body and tail worrisome for acute pancreatitis. No pseudocyst is identified. No pancreatic duct or parenchyma calcifications. Chest X-Ray 05/22/19 00:00 IMPRESSION: Bilateral airspace disease worrisome for multifocal pneumonia. Aspiration should be considered. Endotracheal tube, nasogastric tube in good positioning. Chest X-Ray 05/22/19 00:00 IMPRESSION: Placement of a central venous catheter as above. Other findings are stable copyright 2011 [employer]- All Rights Reserved Head CT 05/22/19 00:00 IMPRESSION: NORMAL BRAIN CT WITHOUT CONTRAST. EVIDENCE OF ACUTE STROKE: NO. Chest X-Ray 05/22/19 13:15 IMPRESSION: Endotracheal tube tip in good positioning. Bibasilar airspace disease left greater than right, abnormal but nonspecific. Aspiration pneumonia should be considered. Chest X-Ray 05/23/19 06:00 IMPRESSION: Tubes and lines in good positioning. Stable right basilar atelectasis versus pneumonia. Progressive left basilar consolidation Plan Plan of Treatment: Transfer to tertiary care center Time Spent: Greater than 30 Minutes - Greater than 70 minutes providing critical care time as well as coordination of care. <ZENY PENDLETON - Last Filed: 05/24/19 01:09> Impression - Admit/DC Date/PCP Admission Date/Primary Care Provider: 05/22/19 15:48 Discharge Date: 05/23/19 - Tranferred to tertiary center - Discharge Diagnosis (1) Acute renal failure (ARF) Is this a current diagnosis for this admission?: Yes (2) Acute respiratory failure Is this a current diagnosis for this admission?: Yes (3) DKA (diabetic ketoacidosis) Is this a current diagnosis for this admission?: Yes (4) Dehydration Is this a current diagnosis for this admission?: Yes (5) Heroin abuse Is this a current diagnosis for this admission?: Yes - Additional Information Resuscitation Status: Full Code Discharge Diet: Other (Comments) - NPO on IV fluids Discharge Activity: Bedrest Additional Information: Transfer to [facility]. History of Present Illiness History of Present Illness: LUCIANA VIVEROS is a 23 year old male all as noted above. Physical Exam Vital Signs: Temp Pulse Resp BP Pulse Ox 99.9 F 67 29 H 105/61 100 05/23/19 23:59 05/23/19 20:00 05/23/19 23:00 05/23/19 22:53 05/23/19 23:00 Intake & Output 05/22/19 05/23/19 05/24/19 23:59 23:59 23:59 Intake Total 4611 4083.4 Output Total 135 910 Balance 4476 3173.4 Weight 93 kg 95.7 kg General appearance: PRESENT: severe distress, other Head exam: PRESENT: atraumatic, normocephalic Respiratory exam: PRESENT: tachypnea Stroke Is this a Stroke Patient?: No Acute Heart Failure - Is this a Heart Failure Patient?: No
--- NOTE | 2019-05-24 01:12 | EKG REPORT ---
SEVERITY:- OTHERWISE NORMAL ECG - SINUS RHYTHM ST ELEV, PROBABLE NORMAL EARLY REPOL PATTERN PROLONGED QT INTERVAL : Confirmed by: Kristi Flores MD 24-May-2019 01:12:27
[2019-05-24] MEDS: HEPARIN SOD (PORCINE) 5,000 UNIT/ML 1 ML VIAL SUBCUT SCH (02:06)
[2019-05-24 02:52] VITALS: BP 126/81
[2019-05-24] MEDS: PIPERACILLIN SODIUM/TAZOBACTAM 2.25 GM in NORMAL SALINE 50 ML IV SCH (03:11)
[2019-05-24] MEDS: DEXMEDETOMIDINE IN NS 400 MCG/100 ML RTUPB IV PRN (03:48)
[2019-05-24 03:50] LABS: ARTERIAL BLOOD BASE EXCESS -15.7 mmol/L; ARTERIAL BLOOD H2CO3 0.48 mmol/L (1.05-1.35); ARTERIAL BLOOD HCO3 8.1 mmol/L (20-24); ARTERIAL BLOOD O2 SATURATION 97.8 % (94-98); ARTERIAL BLOOD PH 7.32 (7.35-7.45); ARTERIAL BLOOD PO2 108.8 mmHg (80-100); ARTERIAL BLOOD TOTAL CO2 8.5 mmol/L (23-27); HEMATOCRIT 30.9 % (37.9-51.0); MEAN CORPUSCULAR HEMOGLOBIN 28.9 pg (27.0-33.4); MEAN CORPUSCULAR HGB CONC 35.6 g/dL (32.0-36.0); MEAN CORPUSCULAR VOLUME 81 fl (80-97); PLATELET COUNT 102 10^3/uL (150-450); RED BLOOD COUNT 3.81 10^6/uL (4.35-5.55); RED CELL DISTRIBUTION WIDTH 14.7 % (11.5-14.0); WHITE BLOOD COUNT 7.9 10^3/uL (4.0-10.5)
[2019-05-24 03:53] LABS: ARTERIAL BLOOD FIO2 40%
[2019-05-24 03:54] LABS: ARTERIAL BLOOD PCO2 16.1 mmHg (35-45)
[2019-05-24 04:09] LABS: ANION GAP 15 (5-19); BLOOD UREA NITROGEN 65 mg/dL (7-20); CALCIUM 9.5 mg/dL (8.4-10.2); CHLORIDE 113 mmol/L (98-107); GLUCOSE 190 mg/dL (75-110); POTASSIUM 3.7 mmol/L (3.6-5.0)
[2019-05-24 04:10] LABS: CARBON DIOXIDE 10 mmol/L (22-30)
== END 2019-05-24 04:58 | disposition short-term general hospital (02) | DRG 637 ==
LOC: ER 13:00 → EH 15:48 → ICU 17:58
PROVIDERS: ADMIT Internal Medicine Critical Care Medicine; ATTEND Internal Medicine Critical Care Medicine
PROC: 5A1945Z Respiratory Ventilation, 24-96 Consecutive Hours (ICD-10-PCS; principal; 2019-05-22)
PROC: 0BH17EZ Insertion of Endotracheal Airway into Trachea, Via Natural or Artificial Opening (ICD-10-PCS; 2019-05-22)
PROC: 02HV33Z Insertion of Infusion Device into Superior Vena Cava, Percutaneous Approach (ICD-10-PCS; 2019-05-22)
DX: E10.11 Type 1 diabetes mellitus with ketoacidosis with coma (principal); K85.90 Acute pancreatitis without necrosis or infection, unspecified; J96.00 Acute respiratory failure, unspecified whether with hypoxia or hypercapnia; N17.8 Other acute kidney failure; R40.2112 Coma scale, eyes open, never, at arrival to emergency department; R40.2312 Coma scale, best motor response, none, at arrival to emergency department; R40.2222 Coma scale, best verbal response, incomprehensible words, at arrival to emergency department; R40.2432 Glasgow coma scale score 3-8, at arrival to emergency department; I95.9 Hypotension, unspecified; E86.0 Dehydration; F11.10 Opioid abuse, uncomplicated; T68.XXXA Hypothermia, initial encounter
CPT/HCPCS: 36415; 51702; 70450; 71045; 74176; 80048; 80053; 80307; 81001; 82040; 82140; 82150; 82550; 82553; 82803; 82962; 83036; 83605; 83690; 83735; 84100; 84439; 84443; 84481; 84484; 85025; 85027; 85610; 85730; 86850; 86900; 86901; 87040; 87070; 87077; 87086; 87186; 87205; 93005; 93010; 94002; 94003; 96365; 96366; 96375; 99291; C9113; J0330; J1644; J1815; J2060; J2250; J2310; J2543; J2704; J3010; J3370; J3411; J3480; J3490; J7030; J7050; J7060; J7120